=== PATIENT | male | born 1970 | race Caucasian/White ===

== ENCOUNTER 2022-07-26 09:02 | Emergency (ER) | payer OTHER ==
[~2022-07-26] VITALS: Ht 160 cm; Wt 83.6 kg
[2022-07-26] MEDS ORDERED: TETRACAINE HCL/PF 0.5% 4 ML OPHTHALMIC SOLUTION OD ONE (10:00)
[2022-07-26] MEDS ORDERED: FLUORESCEIN SODIUM 1 MG STRIP OD ONE (10:00)
[2022-07-26] MEDS ORDERED: PERTUSS(ACELL),DIPH,TET VAC/PF 0.5 ML SYRINGE IM. ONE (10:45)
[2022-07-26] MEDS ORDERED: MOXI3DRO27 OD (11:16)
[2022-07-26 11:25] VITALS: BP 131/90
== END 2022-07-26 11:42 | disposition home or self-care (01) ==
LOC: EMS 09:05
DX: S05.01XA Injury of conjunctiva and corneal abrasion without foreign body, right eye, initial encounter (principal); H10.9 Unspecified conjunctivitis; X58.XXXA Exposure to other specified factors, initial encounter; Y93.89 Activity, other specified; Y92.328 Other athletic field as the place of occurrence of the external cause; Y99.8 Other external cause status
CPT/HCPCS: 90471; 90715; 99284